=== PATIENT | female | born 1990 | race Caucasian/White ===

== ENCOUNTER 2019-08-11 15:52 | Emergency (ER) | payer OTHER ==
[~2019-08-11] VITALS: Ht 162.6 cm; Wt 73.9 kg
[~2019-08-11 15:52] MED LIST: CIPRO500 MG PO; FLAGYL500MG PO; PROBIOTIC1 EACH PO; ZANTAC150 MG PO
== END 2019-08-11 19:40 | disposition home or self-care (01) ==
LOC: ER 15:52
DX: M62.830 Muscle spasm of back (principal); M54.2 Cervicalgia; K21.9 Gastro-esophageal reflux disease without esophagitis